=== PATIENT | male | born 1995 | race Caucasian/White ===

== ENCOUNTER 2017-02-24 00:15 | Emergency (ER) | payer OTHER ==
[2017-02-24 01:33] VITALS: BP 113/74
--- NOTE | 2017-02-24 02:34 | ED ---
Substance Abuse/Use - HPI Summary HPI Summary: smoked marijuana this evening and got paranoid-and anxious, his friends brought him to the hospital---Patient has taken a nap and is now feeling much better, Friends agree patient is acting his usual self and feel comfortable with his behavior - History Of Current Complaint Chief Complaint: EDSubstanceAbuse Stated Complaint: SUBSTANCE ABUSE Time Seen by Provider: 02/24/17 02:28 Hx Obtained From: Patient Ingestion History: Type/Name Of Drug - cannabbis Timing Of Abuse: Intermittent Severity Initially: Moderate Severity Currently: None Character: Anxious Aggravating Factor(s): Nothing Alleviating Factor(s): Nothing Associated Signs And Symptoms: Paranoid Behavior, Other: - Anxious Related Hx: Drug/Alcohol Last Used @ - cannabis this evening - Allergies/Home Medications Allergies/Adverse Reactions: Allergies Allergy/AdvReac Type Severity Reaction Status Date / Time No Known Allergies Allergy Verified 02/24/17 01:27 PMH/Surg Hx/FS Hx/Imm Hx Previously Healthy: Yes - Cancer History Hx Hematologic Symptoms: No Hx Radiation Therapy: No Hx Palliative Cancer Treatment: No - Immunization History Date of Tetanus Vaccine: utd Date of Influenza Vaccine: none Infectious Disease History: No Infectious Disease History: Denies: Traveled Outside the [place] in Last 30 Days - Family History Known Family History: Positive: Other Family History: no cardiovascular issues in family lineage - Social History Occupation: Student Lives: With Family Alcohol Use: Occasionally Substance Use Type: Reports: Marijuana Smoking Status (MU): Never Smoked Tobacco Review of Systems Constitutional: Negative Eyes: Negative ENT: Negative Cardiovascular: Negative Respiratory: Negative Gastrointestinal: Negative Genitourinary: Negative Musculoskeletal: Negative Skin: Negative Neurological: Negative Psychological: Other Positive: Anxious - resolved All Other Systems Reviewed And Are Negative: Yes Physical Exam Triage Information Reviewed: Yes Vital Signs On Initial Exam: Initial Vitals Temp Pulse Resp BP Pulse Ox 98.6 F 113 16 134/84 100 02/24/17 00:16 02/24/17 00:02/24/17 00:02/24/17 00:02/24/17 00:16 Vital Signs Reviewed: Yes Appearance: Positive: Well-Appearing, No Pain Distress, Well-Nourished Skin: Positive: Warm, Skin Color Reflects Adequate Perfusion, Dry Head/Face: Positive: Normal Head/Face Inspection Eyes: Positive: Normal, EOMI, APOLINAR, Conjunctiva Clear ENT: Positive: Normal ENT inspection, Hearing grossly normal, Pharynx normal Neck: Positive: Supple, Nontender, No Lymphadenopathy Respiratory/Lung Sounds: Positive: Clear to Auscultation, Breath Sounds Present , Decreased Breath Sounds Cardiovascular: Positive: Normal, RRR Musculoskeletal: Positive: Normal, Strength/ROM Intact Neurological: Positive: Normal, Sensory/Motor Intact, Alert, Oriented to Person Place, Time, Reflexes Intact, Normal Gait Psychiatric: Positive: Normal, Affect/Mood Appropriate, Anxious - on arrival--- now resolved AVPU Assessment: Alert - [place] Coma Scale Best Eye Response: 4 - Spontaneous Best Motor Response: 6 - Obeys Commands Best Verbal Response: 5 - Oriented Coma Scale Total: 15 Diagnostics - Vital Signs Vital Signs Temp Pulse Resp BP Pulse Ox 02/24/17 01:22 98.6 F 92 16 113/74 98 02/24/17 00:16 98.6 F 113 16 134/84 100 - Laboratory Lab Statement: Any lab studies that have been ordered have been reviewed, and results considered in the medical decision making process. Course/Dx - Course Assessment/Plan: concider substance abuse treatment, donot drive an auto, follow with pcp prn - Diagnoses Differential Diagnosis/HQI/PQRI: Positive: Acute Psychosis, Anxiety, Depression , Drug Abuse Provider Diagnoses: Cannabis abuse with intoxication Discharge - Discharge Plan Condition: Stable Disposition: HOME Patient Education Materials: Cannabis Abuse (ED), Anxiety (ED) Referrals: [facility] [Outside] (if needed or desired)
== END 2017-02-24 02:52 | disposition home or self-care (01) ==
LOC: ED 00:15
DX: F12.129 Cannabis abuse with intoxication, unspecified (principal)
CPT/HCPCS: 99282